=== PATIENT | female | born 1985 ===

== ENCOUNTER 2018-01-15 18:55 | Emergency (ER) | payer MEDICAID, MEDICARE ==
[2018-01-15 19:05] VITALS: TEMP 97.9
--- NOTE | 2018-01-15 19:50 | ED PDOC ---
HPI: Female Pain Time Seen by Provider: 01/15/18 19:10 Chief Complaint (Nursing): Abdominal Pain Chief Complaint (Provider): Vaginal spotting History Per: Patient History/Exam Limitations: no limitations Additional Complaint(s): Pt @ 10 weeks presents with lower abdominal cramping and vaginal spotting X 2 days. Denies fever, nausea, vomiting. Abnormal Vaginal Bleeding: Yes Last Menstral Period: 11/02/17 : 3 Para: 1 Miscarriage: 1 Past Medical History Reviewed: Nursing Documentation, Vital Signs Vital Signs: Last Vital Signs Temp 97.9 F 01/15/18 19:03 Pulse 103 H 01/15/18 19:03 Resp 16 01/15/18 19:03 BP 144/88 01/15/18 19:03 Pulse Ox 100 01/15/18 19:03 - Medical History PMH: No Chronic Diseases - Surgical History Surgical History: No Surg Hx - Family History Family History: States: Unknown Family Hx - Living Arrangements Living Arrangements: With Family - Social History Current smoker - smoking cessation education provided: No Alcohol: None - Allergies Allergies/Adverse Reactions: Allergies Allergy/AdvReac Type Severity Reaction Status Date / Time No Known Allergies Allergy Verified 01/15/18 19:03 Review of Systems Constitutional: Negative for: Fever, Chills Respiratory: Negative for: Cough Gastrointestinal: Positive for: Abdominal Pain. Negative for: Nausea, Vomiting, Diarrhea Genitourinary Female: Positive for: Vaginal Bleeding. Negative for: Dysuria, Hematuria, Vaginal Discharge Musculoskeletal: Negative for: Back Pain Skin: Negative for: Rash, Lesions Neurological: Negative for: Headache Physical Exam - Reviewed Nursing Documentation Reviewed: Yes Vital Signs Reviewed: Yes - Physical Exam Appears: Positive for: No Acute Distress (Mild painful) Skin: Positive for: Normal Color, Warm, Dry Eye Exam: Positive for: Normal appearance, EOMI, PERRL Cardiovascular/Chest: Positive for: Regular Rate, Rhythm Respiratory: Positive for: Normal Breath Sounds Gastrointestinal/Abdominal: Positive for: Bowel Sounds, Soft, Tenderness (BLQ/suprapubic). Negative for: Distended, Guarding, Rebound Extremity: Positive for: Normal ROM Neurologic/Psych: Positive for: Alert, Oriented - Laboratory Results Result Diagrams: 01/15/18 20:10 01/15/18 20:10 - ECG O2 Sat by Pulse Oximetry: 100 Medical Decision Making Medical Decision Makin yo female @ 10 weeks with lower abdominal cramping and vaginal spotting. - labs - pelvic ultrasound - Tylenol 00:10 US FINDINGS: Uterus measures 10.1x1.5x7.1 cm Anteverted uterus Normal cervical length measuring 3.9 cm Non-visualization of the endometrium secondary to adjacent fibroid measuring 6.4x6.1x5.5 cm No intrauterine detected No intrauterine gestational sac identified No free fluid is noted in the pelvic cul-de-sac The right ovary is normal in size and echotexture measuring 2.5x3.4x1.8 cm The left ovary is normal in size and echotexture measuring 3.3x3.8x2.1 cm There is a complex structure adjacent to the left lateral side of the uterus and possibly attached uterus with some vascularity measuring 6.1 cm Nabothian cysts if the uterine cervix IMPRESSION: Complex lesion adjacent to the left lateral aspect of uterus. Followup exam is s uggested to exclude ectopic . Correlation with serial beta-hCG evaluation is suggested. The differential diagnosis of this complex structure may represent cystic degeneration of pedunculated left lateral fundal subserosal fibroid. 00:[address] Ramey, states ultrasound findings of 6.1 cm structure c/w fibroid or hemorrhagic cyst. Recommends follow-up with private Ob in 2 days for repeat beta hCG and repeat ultrasound in 1-2 weeks. 00:18 Patient d/c with copies of lab and US results. Upon d/c pt relays that she had a beta level drawn on December 03 that was 1999 and had an US that showed IUP but no heartbeat. Findings discussed in detail with patient and the need for urgent follow up with OB was expressed. Disposition - Clinical Impression Clinical Impression: Threatened - Patient ED Disposition Is Patient to be Admitted: No - Disposition Disposition: Routine/Home Disposition Time: 00:18 Condition: CRITICAL Additional Instructions: FOLLOW-UP WITH OB-CARDIOLOGY COORDINATOR IN 48 HOURS FOR REPEAT BETA HCG AND ULTRASOUND. TYLENOL NEEDED FOR PAIN. Instructions: Threatened Miscarriage Forms: [employer] ([employer])
[2018-01-15 20:25] LABS: BASO # 0.1 K/uL (0.0-0.2); BASO % 0.7 % (0.0-2.0); EOS # 0.2 K/uL (0.0-0.7); EOS % 2.2 % (0.0-4.0); HEMOGLOBIN 13.5 g/dL (12.0-16.0); LYMPH # 2.4 K/uL (1.0-4.3); LYMPH % 29.7 % (20.0-40.0); MEAN CELL VOLUME 92.3 fl (81.0-99.0); MEAN CORPUSCULAR HEMOGLOBIN 31.4 pg (27.0-31.0); MEAN PLATELET VOLUME 8.5 fl (7.2-11.7); MONO # 0.5 K/uL (0.0-0.8); MONO % 6.3 % (0.0-10.0); NEUT % 61.1 % (50.0-75.0); RBC 4.32 Mil/uL (3.80-5.20); RED CELL DISTRIBUTION WIDTH 13.9 % (11.5-14.5); WHITE BLOOD COUNT 8.2 K/uL (4.8-10.8)
[2018-01-15 20:36] LABS: ALB/GLOB RATIO 1.1 (1.0-2.1); ALBUMIN 4.1 g/dL (3.5-5.0); ALT/SGPT 45 U/L (9-52); AST/SGOT 40 U/L (14-36); BLOOD UREA NITROGEN 9 mg/dl (7-17); CALCIUM 8.9 mg/dL (8.4-10.2); GFR NON-AFRICAN AMERICAN > 60; INR 0.9; PROTHROMBIN TIME 10.3 Seconds (9.8-13.1)
[2018-01-15] MEDS ORDERED: Potassium Chloride 20 mEq ER Tab PO STA (22:11)
[2018-01-16 05:30] VITALS: BP 119/63; PULSE 66; RESP 18; O2SAT 99
--- NOTE | 2018-01-16 10:46 | US ---
Date of service: 01/15/2018 HISTORY: Vaginal spotting. LMP 11/02/2017. Beta HCG 231.96 COMPARISON: None available. TECHNIQUE: Transvaginal only. Real -time technique with 2D, duplex and color Doppler FINDINGS: UTERUS: Measures 7.1 x 7.5 cm. Normal in size and appearance. Location of fibroid and size: Sub serosal 5.5 x 6.4 x 6.0 ENDOMETRIUM: Obscured by the overlying fibroid. CERVIX: No cervical abnormality identified. Closed cervix measures 3.94 Incidental finding: Nabothian cysts the largest measures 1 cm RIGHT OVARY: Measures 1.8 x 2.6 x 3.4 cm. No solid mass. Normal flow. LEFT OVARY: Measures 2 x 3.9 x 4.3 cm. No solid mass. Normal flow. FREE FLUID: No significant free fluid noted. OTHER FINDINGS: Complex study structure interposed between the uterus and left adnexa 5.6 x 6.1 cm. This is a solid mass likely additional fibroid. IMPRESSION: Enlarged heterogeneous uterus with 1, likely 2 fibroids. Limitations of the current examination: Nonvisualization of the endometrial echo complex. Concordant results (preliminary interpretation) provided by [employer]. Procedure Completed: 23:14 Preliminary Report: Dictated and Authenticated: 00:10. Final Interpretation: 10:42. January 16, 2018
== END 2018-01-16 00:40 | disposition home or self-care (01) ==
LOC: H.ER 18:55
DX: O20.0 Threatened abortion (principal)